=== PATIENT | male | born 1990 | race Caucasian/White ===

== ENCOUNTER 2018-02-02 15:45 | Emergency (ER) | payer OTHER ==
[2018-02-02] MEDS: IBUPROFEN 600 MG TAB PO (18:48)
[2018-02-02] MEDS: DIAZEPAM 2 MG TAB PO (19:12)
== END 2018-02-02 20:42 | disposition home or self-care (01) ==
LOC: FTE 15:45
DX: R07.89 Other chest pain (principal)
CPT/HCPCS: 71045; 93005; 99284-25

== ENCOUNTER 2018-05-25 14:35 | Emergency (ER) | payer OTHER ==
[2018-05-25 15:38] LABS: ADD MAN DIFF? NO
[2018-05-25 15:42] LABS: BASOPHILS % 0.5 % (0.0-2.0); EOSINOPHILS # 0.1 10^3/ul (0.0-0.5); EOSINOPHILS % 1.5 % (0.0-7.0); HEMATOCRIT 45.9 % (42.0-52.0); HEMOGLOBIN 14.8 g/dl (14.0-18.0); LYMPHOCYTES # 1.9 10^3/ul (0.8-2.9); LYMPHOCYTES % 31.1 % (15.0-51.0); MEAN CORPUSCULAR HEMOGLOBIN 25.6 pg (29.0-33.0); MEAN CORPUSCULAR HGB CONC 32.2 g/dl (32.0-37.0); MEAN CORPUSCULAR VOLUME 79.3 fl (82.0-101.0); MEAN PLATELET VOLUME 10.9 fl (7.4-10.4); MONOCYTE # 0.5 10^3/ul (0.3-0.9); MONOCYTES % 7.8 % (0.0-11.0); NEUTROPHIL # 3.5 10^3/ul (1.6-7.5); NEUTROPHILS % 58.8 % (39.0-77.0); PLATELET COUNT 212 10^3/UL (140-415); RED BLOOD COUNT 5.79 10^6/ul (4.70-6.10)
[2018-05-25 15:58] LABS: ALANINE AMINOTRANSFERASE 49 IU/L (13-69); ALBUMIN 5.1 g/dl (3.3-4.9); ALBUMIN/GLOBULIN RATIO 1.59; ALKALINE PHOSPHATASE 93 IU/L (42-121); ANION GAP 20 (8-16); ASPARTATE AMINO TRANSFERASE 62 IU/L (15-46); BILIRUBIN,INDIRECT 0.5 mg/dl (0-1.1); BILIRUBIN,TOTAL 0.5 mg/dl (0.2-1.3); BLOOD UREA NITROGEN 7 mg/dl (7-20); CALCIUM 9.5 mg/dl (8.4-10.2); CARBON DIOXIDE 28 mmol/L (21-31); CHLORIDE 102 mmol/L (97-110); CREATININE 0.88 mg/dl (0.61-1.24); GLUCOSE 97 mg/dl (70-220); LIPASE 134 U/L (23-300); POTASSIUM 3.8 mmol/L (3.5-5.1); SODIUM 146 mmol/L (135-144); TOTAL PROTEIN 8.3 g/dl (6.1-8.1)
[2018-05-25 16:19] LABS: TROPONIN-I < 0.012 ng/ml (0.000-0.120)
== END 2018-05-25 17:04 | disposition home or self-care (01) ==
LOC: FTE 14:35
DX: R07.9 Chest pain, unspecified (principal)
CPT/HCPCS: 36415; 71045; 80053; 83690; 84484; 85025; 93005; 99285-25